=== PATIENT | female | born 1955 | race Asian ===

== ENCOUNTER 2016-12-01 10:41 | Emergency (ER) | payer OTHER ==
--- NOTE | 2016-12-01 10:46 | EDPHY ---
HPI/HX/ROS/PE/MDM Narrative: CHIEF COMPLAINT: Chest pain. HPI: The patient is a 61-year-old female who presents via EMS for chest pain since last night just after midnight. Her pain last night was severe and is described as a pressure and squeezing. It is still present this morning but lessened slightly. The pain radiates to her left neck and left ribs. She denies alleviating or provoking factors. No abdominal pain, nausea, vomiting. She has a history of similar symptoms and had a treadmill stress test a few years ago. REVIEW OF SYSTEMS: Aside from elements discussed in the HPI, a comprehensive 10-point review of systems was reviewed and is negative. PMH: Hypertension, , GERD. 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 PHYSICAL EXAM: General: Patient is alert, in no acute distress. ENT: Eyes are normal to inspection. ENT inspection normal. Neck: Normal inspection. Full range of motion. Respiratory: No respiratory distress. Breath sounds normal bilaterally. Cardiovascular: Regular rate and rhythm. Strong peripheral pulses. Abdomen: The abdomen is nontender to palpation. There are no peritoneal signs. There are normal bowel sounds. Back: Normal to inspection. No tenderness to palpation. Skin: Normal color. No rash. Warm and dry. Extremities: Normal appearance. Full range of motion. Neuro: Oriented x3. Normal motor function. Normal sensory function. Portions of this note were transcribed by an ED scribe. I personally performed the history, physical exam, and medical decision making; and confirm the accuracy of the information in the transcribed note. ED Course: I obtained a report from the [facility]. An IV was established and labs ordered. Chest x-ray and EKG obtained. EKG was ordered and interpreted by myself. Please see [employer] system for official reading. 1249: Reassessed patient. Discussed results of x-rays and lab work. I recommended admission but she wants to go home. She understands to follow up with [facility] and has been given the telephone number. Study: PA and Lateral Chest X-ray Indication: Chest pain Results: I viewed the images myself on the PACS system. The radiologist interpretation is: Clear lungs. No acute process. MDM: This patient presents with chest pain that has been constant since last night but thankfully has negative ECG and troponin, making her risk for ACS low. Additionally, she reports a negative ETT within the last seven months, although I cannot confirm this since it was done at an outside institution. I recommended that she be admitted for cardiac evaluation and troponin rule out but she declines and would like to go home. She understands risks of this decision, including possible heart attack. I considered PE, but patient does not describe pain as pleuritic and she has no known risk factors for this disease. - Data Points Laboratory Results: Laboratory Results 12/01/16 10:43 12/01/16 10:43 12/01/16 12/01/16 10:43 10:43 WBC 6.36 10^3/uL 10^3/uL (3.80-9.50) RBC 4.68 10^6/uL 10^6/uL (4.18-5.33) Hgb 14.3 g/dL g/dL (12.6-16.3) Hct 42.6 % % (38.0-47.0) MCV 91.0 fL fL (81.5-99.8) MCH 30.6 pg pg (27.9-34.1) MCHC 33.6 g/dL g/dL (32.4-36.7) RDW 12.7 % % (11.5-15.2) Plt Count 278 10^3/uL 10^3/uL (150-400) MPV 9.6 fL fL (8.7-11.7) Neut % (Auto) 62.3 % % (39.3-74.2) Lymph % (Auto) 26.7 % % (15.0-45.0) [place] % (Auto) 8.3 % % (4.5-13.0) Eos % (Auto) 1.9 % % (0.6-7.6) Baso % (Auto) 0.6 % % (0.3-1.7) Nucleat RBC Rel Count 0.0 % % (0.0-0.2) Absolute Neuts (auto) 3.96 10^3/uL 10^3/uL (1.70-6.50) Absolute Lymphs (auto) 1.70 10^3/uL 10^3/uL (1.00-3.00) Absolute Monos (auto) 0.53 10^3/uL 10^3/uL (0.30-0.80) Absolute Eos (auto) 0.12 10^3/uL 10^3/uL (0.03-0.40) Absolute Basos (auto) 0.04 10^3/uL 10^3/uL (0.02-0.10) Absolute Nucleated RBC 0.00 10^3/uL 10^3/uL (0-0.01) Immature Gran % 0.2 % % (0.0-1.1) Immature Gran # 0.01 10^3/uL 10^3/uL (0.00-0.10) Sodium 138 mEq/L mEq/L (134-144) Potassium 4.1 mEq/L mEq/L (3.5-5.2) Chloride 101 mEq/L mEq/L (97-110) Carbon Dioxide 25 mEq/l mEq/l (22-31) Anion Gap 12 mEq/L mEq/L (8-16) BUN 18 mg/dL mg/dL (7-23) Creatinine 0.7 mg/dL mg/dL (0.6-1.0) Estimated GFR > 60 Glucose 94 mg/dL mg/dL (70-100) Calcium 10.1 mg/dL mg/dL (8.5-10.4) Troponin I < 0.012 ng/mL ng/mL (0-0.034) General Initial Vital Signs: Initial Vital Signs Temperature (C) 36.7 C 12/01/16 10:41 Heart Rate 61 12/01/16 10:41 Respiratory Rate 14 12/01/16 10:41 Blood Pressure 126/89 H 12/01/16 10:41 O2 Sat (%) 96 12/01/16 10:41 O2 Delivery Mode Room Air Allergies/Adverse Reactions: metronidazole [From Flagyl] Allergy (Verified 03/08/15 21:17) Metronidazole HCl [From Flagyl] Allergy (Verified 03/08/15 21:17) RUBBING ALCOHOL Allergy (Uncoded 05/28/14 11:48) Home Medications: Medication Instructions Recorded Hydrochlorothiazide [HCTZ (*)] 25 mg PO DAILY 03/09/15 Lansoprazole [Lansoprazole 30 mg 30 mg PO DAILY 03/09/15 tab] Departure - Departure Disposition: Home, Routine, Self-Care Clinical Impression: Chest pain Condition: Good Instructions: Chest Pain (ED) Additional Instructions: Call [facility] tomorrow to set up an appointment. Return for any serious worsening of condition. Referrals: [facility] [Provider Group] - As per Instructions Report Scribed for: Pantera Flores Report Scribed by: Jeremías Garcia Date of Report: 12/01/16 Time of Report: 10:48
[2016-12-01 10:57] LABS: % IMMATURE GRANULYOCYTES 0.2 % (0.0-1.1); ABSOLUTE IMMATURE GRANULOCYTES 0.01 10^3/uL (0.00-0.10); ADD DIFF? NO; ADD MORPH? NO; ADD SCAN? NO; ATYPICAL LYMPHOCYTE FLAG 10 (0-99); FRAGMENT RBC FLAG 0 (0-99); HEMATOCRIT 42.6 % (38.0-47.0); HEMOGLOBIN 14.3 g/dL (12.6-16.3); LEFT SHIFT FLG 0 (0-99); LIPEMIA HEMOLYSIS FLAG 80 (0-99); MEAN CELL HEMOGLOBIN 30.6 pg (27.9-34.1); MEAN CELL HEMOGLOBIN CONCENTR. 33.6 g/dL (32.4-36.7); MEAN PLATELET VOLUME 9.6 fL (8.7-11.7); PLATELET CLUMPS FLAG 0 (0-99); PLATELET COUNT 278 10^3/uL (150-400); RED BLOOD CELL COUNT 4.68 10^6/uL (4.18-5.33); RED CELL DISTRIBUTION WIDTH 12.7 % (11.5-15.2)
[2016-12-01 11:15] LABS: ANION GAP 12 mEq/L (8-16); CALCIUM 10.1 mg/dL (8.5-10.4); CARBON DIOXIDE 25 mEq/l (22-31); CHLORIDE 101 mEq/L (97-110); CREATININE 0.7 mg/dL (0.6-1.0); GLOMERULAR FILTRATION RATE > 60; GLUCOSE 94 mg/dL (70-100); POTASSIUM 4.1 mEq/L (3.5-5.2); SODIUM 138 mEq/L (134-144)
[2016-12-01 11:26] LABS: TROPONIN I < 0.012 ng/mL (0-0.034)
[2016-12-01 12:57] VITALS: BP 139/90; PULSE 55; RESP 16; TEMP 97.5; O2SAT 97
== END 2016-12-01 12:56 | disposition home or self-care (01) ==
LOC: EDUNIT#
DX: R07.9 Chest pain, unspecified (principal); I10 Essential (primary) hypertension

== ENCOUNTER 2017-12-22 13:02 | Emergency (ER) | payer OTHER ==
[2017-12-22] MEDS ORDERED: NS 1,000 ML IV ONE (13:08)
--- NOTE | 2017-12-22 13:10 | EDPHY ---
HPI/HX/ROS/PE/MDM Narrative: CHIEF COMPLAINT: Near-syncope HPI: This patient is a 62 year old female arriving via EMS presenting following an episode of near-syncope. While at work around 12pm, she felt a sensation like severe hunger and then sudden onset of dizziness. Her vision became dark. This lasted about 5 seconds and then resolved. She contacted her primary care physician's office regarding this and staff referred her to the emergency department. She has not had similar symptoms in the past. The patient felt mildly weak following this episode. She had breakfast today and generally stays well hydrated. Per EMS, vitals were stable in transport. She is currently asymptomatic and has no further complaints. REVIEW OF SYSTEMS: Aside from elements discussed in the HPI, a comprehensive 10-point review of systems was reviewed and is negative. PMH: Hypertension, , GERD, osteoporosis. SOCIAL HISTORY: . Lives in [place]. Works at the [employer]. PHYSICAL EXAM: General:Patient is alert, in no acute distress. ENT:Eyes are normal to inspection. ENT inspection normal. Neck: Normal inspection. Full range of motion. Respiratory:No respiratory distress. Breath sounds normal bilaterally. Cardiovascular: Regular rate and rhythm. Strong peripheral pulses. Normal cap refill. Abdomen:The abdomen is nontender to palpation. There are no peritoneal signs. There are normal bowel sounds. Back: Normal to inspection. No tenderness to palpation. Skin: Normal color. No rash. Warm and dry. Extremities: Normal appearance. Full range of motion. Neuro: Oriented x3. Normal motor function. Normal sensory function. ED Course: 62 y/o female presents following a near-syncopal episode. Plan for EKG, labs including CBC chemistries, troponin, TSH. Plan for CT head. EKG was ordered and interpreted by myself. Please see [email or web address] system for official reading. 14:[address] Carrillo, radiologist. CT head negative for acute processes. 15:24 Reviewed laboratory studies. Largely unremarkable. Troponin negative. TSH within normal limits. MDM: This patient presents with what sounds like a near-syncopal episode. We performed an extensive workup which is negative. The patient has a history of prior negative workups for chest pain. She is currently asymptomatic. I see no signs of ACS, PE, severe dehydration, CVA, TAD. I think she is safe for further outpatient workup. - Data Points Imaging Results: Imaging Impressions Head CT 12/22/17 13:31 Impression: There is no acute intracranial abnormality identified on this unenhanced CT evaluation, or substantial change from 03/09/2015. If there is further clinical concern regarding the patient's symptoms, MR imaging is suggested, if not otherwise contraindicated. Findings were discussed with Pantera Flores MD at 14:00, on 12/22/2017. Laboratory Results: Laboratory Results 12/22/17 13:13 12/22/17 14:18 12/22/17 12/22/17 12/22/17 14:18 13:13 13:13 WBC 6.03 10^3/uL 10^3/uL (3.80-9.50) RBC 4.28 10^6/uL 10^6/uL (4.18-5.33) Hgb 13.3 g/dL g/dL (12.6-16.3) Hct 39.9 % % (38.0-47.0) MCV 93.2 fL fL (81.5-99.8) MCH 31.1 pg pg (27.9-34.1) MCHC 33.3 g/dL g/dL (32.4-36.7) RDW 12.5 % % (11.5-15.2) Plt Count 233 10^3/uL 10^3/uL (150-400) MPV 9.9 fL fL (8.7-11.7) Neut % (Auto) 47.7 % % (39.3-74.2) Lymph % (Auto) 41.0 % % (15.0-45.0) [place] % (Auto) 8.1 % % (4.5-13.0) Eos % (Auto) 2.0 % % (0.6-7.6) Baso % (Auto) 1.0 % % (0.3-1.7) Nucleat RBC Rel Count 0.0 % % (0.0-0.2) Absolute Neuts (auto) 2.88 10^3/uL 10^3/uL (1.70-6.50) Absolute Lymphs (auto) 2.47 10^3/uL 10^3/uL (1.00-3.00) Absolute Monos (auto) 0.49 10^3/uL 10^3/uL (0.30-0.80) Absolute Eos (auto) 0.12 10^3/uL 10^3/uL (0.03-0.40) Absolute Basos (auto) 0.06 10^3/uL 10^3/uL (0.02-0.10) Absolute Nucleated RBC 0.00 10^3/uL 10^3/uL (0-0.01) Immature Gran % 0.2 % % (0.0-1.1) Immature Gran # 0.01 10^3/uL 10^3/uL (0.00-0.10) Sodium 142 mEq/L mEq/L REJ (135-145) Potassium 4.6 mEq/L mEq/L TNP (3.5-5.2) Chloride 107 mEq/L mEq/L TNP (97-110) Carbon Dioxide 24 mEq/l mEq/l TNP (22-31) Anion Gap 11 mEq/L mEq/L TNP (8-16) BUN 20 mg/dL mg/dL TNP (7-23) Creatinine 0.7 mg/dL mg/dL TNP (0.6-1.0) Estimated GFR > 60 TNP Glucose 106 mg/dL H mg/dL TNP (70-100) Calcium 9.5 mg/dL mg/dL TNP (8.5-10.4) Troponin I < 0.012 ng/mL ng/mL (0.000-0.034) TSH Pending 1.030 uIU/mL uIU/mL (0.465-4.680) Medications Given: Discontinued Medications Sodium Chloride (Ns) 1,000 mls @ 0 mls/hr IV EDNOW ONE; Wide Open PRN Reason: Protocol Stop: 12/22/17 13:09 Last Admin: 12/22/17 13:38 Dose: 1,000 mls General Time Seen by Provider: 12/22/17 13:08 Initial Vital Signs: Initial Vital Signs Temperature (C) 36.6 C 12/22/17 13:12 Heart Rate 67 12/22/17 13:12 Respiratory Rate 18 12/22/17 13:12 Blood Pressure 141/88 H 12/22/17 13:12 O2 Sat (%) 95 12/22/17 13:12 O2 Delivery Mode Room Air Allergies/Adverse Reactions: metronidazole [From Flagyl] Allergy (Verified 03/08/15 21:17) Metronidazole HCl [From Flagyl] Allergy (Verified 03/08/15 21:17) RUBBING ALCOHOL Allergy (Uncoded 05/28/14 11:48) Home Medications: Medication Instructions Recorded Hydrochlorothiazide [HCTZ (*)] 25 mg PO DAILY 03/09/15 Lansoprazole [Lansoprazole 30 mg 30 mg PO DAILY 03/09/15 tab] Departure - Departure Disposition: Home, Routine, Self-Care Clinical Impression: Near syncope Condition: Good Instructions: Near Syncope (ED) Additional Instructions: 1. Follow up with your primary care provider in 2-3 days. 2. Return to the emergency department for recurrence of symptoms, fainting, chest pain, shortness of breath, fever, or other worsening of condition. Referrals: Sagar hJa [place] [place] - As per Instructions Report Scribed for: Pantera Flores Report Scribed by: Mita Montalvo Date of Report: 12/22/17 Time of Report: 13:10 Physician Review and Approval Statement: Portions of this note were transcribed by an ED scribe. I personally performed the history, physical exam, and medical decision making; and confirm the accuracy of the information in the transcribed note.
--- NOTE | 2017-12-22 13:25 | CPEKG ---
Heart Rate: 59 RR Interval: 1017 P-R Interval: 164 QRSD Interval: 80 QT Interval: 428 QTC Interval: 424 P [place]: 56 QRS [place]: 58 T Wave [place]: 33 EKG Severity - NORMAL ECG - EKG Impression: SINUS RHYTHM Electronically Signed By: Khris Pires 24-Dec-2017 12:51:09
[2017-12-22 13:33] LABS: PLATELET COUNT 233 10^3/uL (150-400)
[2017-12-22 15:39] VITALS: BP 134/85
== END 2017-12-22 16:00 | disposition home or self-care (01) ==
LOC: EDUNIT# → EDBD
DX: R55 Syncope and collapse (principal); I10 Essential (primary) hypertension; E86.9 Volume depletion, unspecified

== ENCOUNTER 2018-07-22 00:54 | Emergency (ER) | payer OTHER ==
[2018-07-22 01:03] VITALS: BP 139/102
--- NOTE | 2018-07-22 01:32 | EDPHY ---
H & P Stated Complaint: Drank 2 bottles of mag citrate, now concerned she overdosed Time Seen by Provider: 07/22/18 01:21 HPI/ROS: HPI The patient presents with concerned that she is overdosed on magnesium citrate. She is currently suffering from constipation. At 8:00 p.m. She took 1 bottle , 296 mL of magnesium citrate. This did not produce a bowel movement, thus at 11:00 p.m. She took a 2nd bottle of it. She then had a bowel movement but was reading the instructions which said if you use more than 1 bottle in a day you should call poison Control. She currently is feeling some epigastric abdominal discomfort and is having bowel movements, however denies any other symptoms. She believes she has normal kidney function but is not entirely sure.. REVIEW OF SYSTEMS 10 systems were reviewed and negative with the exception of the elements mentioned in the history of present illness. PMHx: Hypertension Soc Hx: Housed PHYSICAL General Appearance: Alert, no distress Eyes: Pupils equal and round no pallor or injection ENT, Mouth: Mucous membranes moist Respiratory: Breathing comfortably Gastrointestinal: Abdomen is soft and non-tender, no masses, bowel sounds normal Neurological: A&O, moves all extremities Skin: Warm and dry, no rashes Extremities: symmetrical Psychiatric: Patient is oriented X 3, there is no agitation Source: Patient Exam Limitations: No limitations - Personal History Tetanus Vaccine Date: WITHIN 10 YRS - Medical/Surgical History Hx Asthma: No Hx Chronic Respiratory Disease: No Hx Diabetes: No Hx Cardiac Disease: Yes Hx Renal Disease: No Hx Cirrhosis: No Hx Alcoholism: No Hx HIV/AIDS: No Hx Splenectomy or Spleen Trauma: No Other PMH: HTN, , hysterectomy - Social History Smoking Status: Never smoked Constitutional: Initial Vital Signs Temperature (C) 36.6 C 07/22/18 01:01 Heart Rate 60 07/22/18 01:01 Respiratory Rate 16 07/22/18 01:01 Blood Pressure 139/102 H 07/22/18 01:01 O2 Sat (%) 97 07/22/18 01:01 O2 Delivery Mode Room Air Allergies/Adverse Reactions: metronidazole [From Flagyl] Allergy (Verified 03/08/15 21:17) Metronidazole HCl [From Flagyl] Allergy (Verified 03/08/15 21:17) RUBBING ALCOHOL Allergy (Uncoded 05/28/14 11:48) Home Medications: Medication Instructions Recorded Hydrochlorothiazide [HCTZ (*)] 25 mg PO DAILY 03/09/15 Lansoprazole [Lansoprazole 30 mg 30 mg PO DAILY 03/09/15 tab] Medical Decision Making Differential Diagnosis: 63-year-old female who is ingested approximately 600 mL of magnesium citrate over the last several hours, concern for overdose. She is not sure about her kidney function. She had a magnesium level checked that was slightly elevated at 2.5. Her renal function appears normal. I am not worried about any serious untoward affects from this ingestion. She will be discharged home with instructions to avoid magnesium citrate for the next 48 hr. - Data Points Laboratory Results: Laboratory Results 07/22/18 02:03 07/22/18 02:03 Sodium 139 mEq/L mEq/L (135-145) Potassium 4.3 mEq/L mEq/L (3.3-5.0) Chloride 105 mEq/L mEq/L (97-110) Carbon Dioxide 25 mEq/l mEq/l (22-31) Anion Gap 9 mEq/L mEq/L (6-14) BUN 17 mg/dL mg/dL (7-23) Creatinine 0.6 mg/dL mg/dL (0.6-1.0) Estimated GFR > 60 Glucose 98 mg/dL mg/dL (70-100) Calcium 9.4 mg/dL mg/dL (8.5-10.4) Magnesium 2.5 mg/dL H mg/dL (1.6-2.3) Departure - Departure Disposition: Home, Routine, Self-Care Clinical Impression: Hypermagnesemia Condition: Good Instructions: Hypermagnesemia (ED) Additional Instructions: Please avoid using any magnesium citrate for the next 48 hr. Your kidney function today was normal and her magnesium level was slightly elevated. This will improve on its own. Referrals: Jelena Rodriguez MD [Primary Care Provider] - As per Instructions
== END 2018-07-22 02:41 | disposition home or self-care (01) ==
DX: E83.41 Hypermagnesemia (principal); T47.2X5A Adverse effect of stimulant laxatives, initial encounter; K59.00 Constipation, unspecified